=== PATIENT | female | born 1940 | race Caucasian/White ===

== ENCOUNTER 2016-09-10 07:32 | Emergency (ER) | payer MEDICARE, OTHER ==
[~2016-09-10] VITALS: Ht 165.1 cm; Wt 62.2 kg
[~2016-09-10 07:32] MED LIST: ASPI81CH CHEW; ATOR40TA16 PO; CALC600T34 PO; FLUO10CA5 PO; FOSA70TA PO; LEVO75TA3 PO; VITA400C58 PO; [UNRECOGNIZED DRUG - CODE]
[2016-09-10 07:36] VITALS: BP 133/67; PULSE 60; RESP 16; TEMP 97.7; O2SAT 99
[2016-09-10 08:01] LABS: BLOOD, URINE NEG (NEG); GLUCOSE,URINE NEG (NEG); KETONE, URINE NEG (NEG); NITRITE,URINE NEG (NEG); PH, URINE 5.5 (5.0-8.5)
[2016-09-10 08:13] LABS: COMMENT (UR) CULT NOT INDICATED; CULTURE IF INDICATED CULT NOT INDICATED; METHOD OF COLLECTION CLEAN CATCH; RBC, URINE 0-3 /hpf (0-3); TRANSITIONAL EPI CELLS, URINE 0-5 /hpf; URINE COLOR YELLOW (YELLW/STRAW); WBC, URINE 0-2 /hpf (0-5)
[2016-09-10 08:13] LABS: AUTOMATED NEUTROPHIL # 6.6 TH/MM3 (1.8-7.7); BASOPHIL % 0.4 % (0.0-2.0); EOSINOPHIL # 0.1 TH/MM3 (0-0.4); EOSINOPHIL % 1.4 % (0.0-4.0); HEMATOCRIT 33.1 % (35.0-46.0); HEMO FLAGS DIFF FINAL; LYMPH % 11.3 % (9.0-44.0); LYMPHOCYTE # 0.9 TH/MM3 (1.0-4.8); MEAN CELL VOLUME 85.4 FL (80.0-100.0); MEAN CORPUSCULAR HEMOGLOBIN 28.5 PG (27.0-34.0); MEAN CORPUSCULAR HGB CONC 33.4 % (32.0-36.0); NEUT % 77.9 % (16.0-70.0); PLATELET COUNT 164 TH/MM3 (150-450); RED BLOOD COUNT 3.88 MIL/MM3 (4.00-5.30); WHITE BLOOD COUNT 8.4 TH/MM3 (4.0-11.0)
[2016-09-10 08:20] LABS: CHLORIDE 109 MEQ/L (98-107); POTASSIUM 3.8 MEQ/L (3.5-5.1); SODIUM (NA) 142 MEQ/L (136-145)
[2016-09-10 08:23] LABS: ANION GAP 6 MEQ/L (5-15); BICARBONATE 27.4 MEQ/L (21.0-32.0)
[2016-09-10 08:24] LABS: APTT (PATIENT) 28.3 SEC (24.3-30.1); BLOOD UREA NITROGEN 29 MG/DL (7-18); PROTHROMBIN TIME - PATIENT 11.4 SEC (9.8-11.6)
[2016-09-10 08:26] LABS: ALT (GPT) 28 U/L (10-53)
[2016-09-10 08:27] LABS: AST (GOT) 20 U/L (15-37); GLOMERULAR FILTRATION RATE 54 ML/MIN (>89)
[2016-09-10 08:28] LABS: TOTAL BILIRUBIN ADULT 0.6 MG/DL (0.2-1.0)
[2016-09-10 08:29] LABS: ALKALINE PHOSPHATASE 60 U/L (45-117)
--- NOTE | 2016-09-10 08:30 | PD ---
HPI Chief Complaint: Complaint Time Seen by Provider: 07:49 Travel History International Travel<30 days: No Contact w/Intl Traveler<30days: No Traveled to known affect area: No History of Present Illness HPI 75 year-old woman who presents to the emergency department complaining of low four-quadrant abdominal pain starting yesterday, no bright red blood in her stool this morning. She's never had previous similar symptoms. No fevers or chills. No nausea or vomiting. No urinary symptoms. She otherwise has been feeling generally well and healthy. She's had a colonoscopy in the past been unremarkable. No history of diverticulitis or colitis. Only abdominal surgical histories a hysterectomy. No other complaints. History Past Medical History Narrative Medical Hypothyroidism Depression Influenza Vaccination: Yes Menopausal: Yes Social History Alcohol Use: Yes (OCCASIONAL) Tobacco Use: Yes (QUIT 11/2015) Allergies-Medications (Allergen,Severity, Reaction): Coded Allergies: No Known Allergies (Verified , 09/10/16) Reported Meds & Prescriptions Reported Meds & Active Scripts Active Fosamax (Alendronate Sodium) 70 Mg Tab 70 Mg PO Q7D Reported Aspirin 81 Mg Chew 81 Mg CHEW DAILY Levothyroxine (Levothyroxine Sodium) 75 Mcg Tab 75 Mcg PO HS Fluoxetine (Fluoxetine HCl) 10 Mg Cap 10 Mg PO DAILY Atorvastatin (Atorvastatin Calcium) 40 Mg Tab 40 Mg PO HS Review of Systems Except as stated in HPI: all other systems reviewed are Neg Physical Exam Narrative GENERAL: 75 year-old woman, well-appearing, no acute distress. SKIN: Focused skin assessment warm/dry. CARDIOVASCULAR: Regular rate and rhythm. No murmur appreciated. RESPIRATORY: No accessory muscle use. Clear to auscultation. Breath sounds equal bilaterally. GASTROINTESTINAL: Abdomen is flat and soft. There is moderate left upper quadrant tenderness to palpation, minimal left lower quadrant tenderness. No rebound or guarding. MUSCULOSKELETAL: No obvious deformities. No edema. NEUROLOGICAL: Awake and alert. No obvious cranial nerve deficits. Motor grossly within normal limits. Normal speech. PSYCHIATRIC: Appropriate mood and affect; insight and judgment normal. Data Data Last Documented VS Vital Signs Date Time Temp Pulse Resp B/P Pulse Ox O2 Delivery O2 Flow Rate FiO2 09/10/16 07:36 97.7 60 16 133/67 99 Orders Urinalysis - C+S If Indicated (09/10/16 07:36) Ct Abd/Pel W Iv Contrast(Rout) (09/10/16 ) Complete Blood Count With Diff (09/10/16 07:56) Comprehensive Metabolic Panel (09/10/16 07:56) Act Partial Throm Time (Ptt) (09/10/16 07:56) Prothrombin Time / Inr (Pt) (09/10/16 07:56) Iv Access Insert/Monitor (09/10/16 07:56) Iohexol 350 Inj (Omnipaque 350 Inj) (09/10/16 08:58) Labs Laboratory Tests Test 09/10/16 09/10/16 07:50 08:06 Urine Collection Type CLEAN CATCH Urine Color YELLOW Urine Turbidity CLEAR Urine pH 5.5 Urine Specific [place] 1.020 Urine Protein NEG mg/dL Urine Glucose (UA) NEG mg/dL Urine Ketones NEG mg/dL Urine Occult Blood NEG Urine Nitrite NEG Urine Bilirubin NEG Urine Leukocyte Esterase NEG Urine RBC 0-3 /hpf Urine WBC 0-2 /hpf Urine Squamous Epithelial 6-8 /hpf Cells Urine Transitional Epithelial 0-5 /hpf Cells Microscopic Urinalysis Comment CULT NOT INDICATED Urine Collection Time 07:50 White Blood Count 8.4 TH/MM3 Red Blood Count 3.88 MIL/MM3 Hemoglobin 11.1 GM/DL Hematocrit 33.1 % Mean Corpuscular Volume 85.4 FL Mean Corpuscular Hemoglobin 28.5 PG Mean Corpuscular Hemoglobin 33.4 % Concent Red Cell Distribution Width 13.0 % Platelet Count 164 TH/MM3 Mean Platelet Volume 8.4 FL Neutrophils (%) (Auto) 77.9 % Lymphocytes (%) (Auto) 11.3 % Monocytes (%) (Auto) 9.0 % Eosinophils (%) (Auto) 1.4 % Basophils (%) (Auto) 0.4 % Neutrophils # (Auto) 6.6 TH/MM3 Lymphocytes # (Auto) 0.9 TH/MM3 Monocytes # (Auto) 0.8 TH/MM3 Eosinophils # (Auto) 0.1 TH/MM3 Basophils # (Auto) 0.0 TH/MM3 CBC Comment DIFF FINAL Differential Comment Prothrombin Time 11.4 SEC Prothromb Time International 1.0 RATIO Ratio Activated Partial 28.3 SEC Thromboplast Time Sodium Level 142 MEQ/L Potassium Level 3.8 MEQ/L Chloride Level 109 MEQ/L Carbon Dioxide Level 27.4 MEQ/L Anion Gap 6 MEQ/L Blood Urea Nitrogen 29 MG/DL Creatinine 1.00 MG/DL Estimat Glomerular Filtration 54 ML/MIN Rate Random Glucose 100 MG/DL Calcium Level 9.3 MG/DL Total Bilirubin 0.6 MG/DL Aspartate Amino Transf 20 U/L (AST/SGOT) Alanine Aminotransferase 28 U/L (ALT/SGPT) Alkaline Phosphatase 60 U/L Total Protein 6.6 GM/DL Albumin 3.6 GM/DL [facility] Medical Decision Making Medical Screen Exam Complete: Yes Emergency Medical Condition: Yes Interpretation(s) LABS: CBC remarkable for mild anemia. CMP, mildly elevated BUN. Coags unremarkable UA unremarkable CT abdomen and pelvis: Acute inflammatory process or descending colon. No significant diverticulosis. Differential diagnosis includes inflammatory disease, infectious colitis, less likely ischemic colitis. Celiac SMA nightmare grossly pain on the skin interventional CT. Stable left adrenal gland. Differential Diagnosis Diverticulitis, colitis, GI bleed, pancreatitis, mass or malignancy, other Narrative Course Medical decision making INITIAL: This 75 year-old woman presents to the emergency department complaining of low four-quadrant abdominal pain and bright red blood in her stool suspicious for diverticulitis. She looks well. We'll check labs, CT imaging, reassess. Diagnosis Primary Impression: Colitis Additional Instructions: Take antibiotics as prescribed. Take acetaminophen as needed for pain. Follow-up with your primary doctor in 2 days for repeat evaluation. Return to the emergency department for any worsening bleeding, lightheadedness, dizziness, worsening abdominal pain, or any other new or worsening symptoms. Med/Other Pt SpecificInfo: Prescription(s) given Scripts Metronidazole (Flagyl)500 Mg [id number] Mg PO TID 14 Days Ref 0 Prov:Mike Massey MD 09/10/16 Ciprofloxacin (Cipro)500 Mg [id number] Mg PO BID 14 Days Prov:Mike Massey MD 09/10/16 Disposition: 01 DISCHARGE HOME Condition: Stable Mike Massey MD September 10, 2016 08:30
[2016-09-10] MEDS ORDERED: IOHEXOL 350 MG/ML 10 ML VIAL (for RAD DIAG) IV ONE (08:58)
--- NOTE | 2016-09-10 09:30 | RADHPO ---
EXAM DATE/TIME: 09/10/2016 08:42 [facility] COMPARISON: CT ABDOMEN & PELVIS W CONTRAST, January 23, 2016, 14:55. INDICATIONS : Left lower quadrant pain. IV CONTRAST: 90 cc Omnipaque 350 (iohexol) IV ORAL CONTRAST: No oral contrast ingested. RADIATION DOSE: 6.89 CTDIvol (mGy) MEDICAL HISTORY : Hypertension. SURGICAL HISTORY : Appendectomy. Cholecystectomy. Tubal ligation. ENCOUNTER: Initial ACUITY: 1 day PAIN SCALE: 4/10 LOCATION: Left lower quadrant TECHNIQUE: Volumetric scanning of the abdomen and pelvis was performed. Using automated exposure control and ad justment of the mA and/or kV according to patient size, radiation dose was kept as low as reasonably achievable to obtain optimal diagnostic quality images. FINDINGS: LOWER LUNGS: The visualized lower lungs are clear. LIVER: Homogeneous density without lesion. There is no dilation of the biliary tree. No calcified gallston es. SPLEEN: Normal size without lesion. PANCREAS: Within normal limits. KIDNEYS: Normal in size and shape. There is no mass, stone or hydronephrosis. ADRENAL GLANDS: 1.5 cm nodule is seen involving the medial limb of the left adrenal gland. Hounsfield units are 85. T his is stable from the prior study. Right adrenal gland is normal. VASCULAR: There is no aortic aneurysm. The celiac, SMA, and MARYBETH appear grossly patent. BOWEL/MESENTERY: There is an acute inflammatory process involving the descending colon. This extends from the splenic flexure to the junction with the sigmoid colon. There is mild stranding of the adjacent mesentery. I appreciate no diverticula. No abscess, perforation, or obstruction observed. Small bowel and stomach are unremarkable. ABDOMINAL WALL: Within normal limits. RETROPERITONEUM: There is no lymphadenopathy. BLADDER: No wall thickening or mass. REPRODUCTIVE: Within normal limits. INGUINAL: There is no lymphadenopathy or hernia. MUSCULOSKELETAL: Within normal limits for patient age. CONCLUSION: 1. Acute inflammatory process involving the descending colon. No significant diverticulosis. Differen tial diagnostic considerations would include inflammatory bowel disease, infectious colitis, and less likely ischemic colitis. The celiac, SMA, and MARYBETH are grossly patent on this conventional CT scan. 2. Stable left adrenal gland nodule. Julio Price Jr., MD on September 10, 2016 at 9:20 Board Certified Radiologist. This report was verified electronically.
[2016-09-10] MEDS ORDERED: METR-1 PO (09:39)
[2016-09-10] MEDS ORDERED: CIPR-9 PO (09:39)
== END 2016-09-10 10:08 | disposition home or self-care (01) ==
LOC: PHED 07:32
DX: K52.9 Noninfective gastroenteritis and colitis, unspecified (principal); K62.5 Hemorrhage of anus and rectum; E03.9 Hypothyroidism, unspecified; Z87.891 Personal history of nicotine dependence
CPT/HCPCS: 74177; 80053; 81001; 85025; 85610; 85730; 99284; Q9967